=== PATIENT | female | born 1945 | race Two or more races ===

== ENCOUNTER 2022-08-20 11:29 | Emergency (ER) | payer OTHER ==
[~2022-08-20] VITALS: Ht 152.4 cm; Wt 64.4 kg
[2022-08-20] MEDS ORDERED: TUSSI PRES-B L480 ML PO (15:24)
[2022-08-20] MEDS ORDERED: CLARITIN10 M1 PO (15:24)
== END 2022-08-20 16:43 | disposition home or self-care (01) ==
LOC: ER 11:29
DX: U07.1 COVID-19 (principal)